=== PATIENT | female | born 1995 | race Caucasian/White ===

== ENCOUNTER 2017-09-14 19:07 | Emergency (ER) | payer OTHER ==
[2017-09-14 21:14] LABS: URINE PH (Dip) POC 7.5 (5.0-8.5)
[2017-09-14 21:14] LABS: URINE BLOOD (Dip) POC Negative (NEGATIVE); URINE GLUCOSE (Dip) POC Negative (NEGATIVE); URINE KETONES (Dip) POC Trace (NEGATIVE); URINE LEUKOCYTE EST (Dip) POC Negative (NEGATIVE); URINE NITRITE (Dip) POC Negative (NEGATIVE); URINE TOTAL PROTEIN POC Trace (NEGATIVE)
== END 2017-09-14 23:35 | disposition home or self-care (01) ==
LOC: FTE 19:07
DX: R10.2 Pelvic and perineal pain (principal)
CPT/HCPCS: 76830; 76856; 81003; 81025; 99284-25